=== PATIENT | male | born 1985 | race Caucasian/White ===

== ENCOUNTER 2018-01-19 10:51 | Emergency (ER) | payer SELFPAY ==
[~2018-01-19] VITALS: Ht 170.2 cm; Wt 63.0 kg
[2018-01-19 10:54] VITALS: BP 117/75
--- NOTE | 2018-01-19 10:58 | NUR ---
Patient ambulated to bed 4. RN evaluating patient at bedside.
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
--- NOTE | 2018-01-19 12:13 | NUR ---
Dr. Greer evaluating patient at bedside.
[2018-01-19] MEDS ORDERED: BACITRACIN OINT 500 UNITS/GM PKT TP ONE (12:25)
--- NOTE | 2018-01-19 12:40 | NUR ---
Dr. Greer re-evaluating patient at bedside.
--- NOTE | 2018-01-19 12:50 | NUR ---
Patient discharged with v/s stable. Written and verbal after care instructions given and explained. Patient alert, oriented and verbalized understanding of instructions. Ambulatory with steady gait. All questions addressed prior to discharge. ID band removed. Patient advised to follow up with PMD. Rx of BACTROBAN given. Patient educated on indication of medication including possible reaction and side effects. Opportunity to ask questions provided and answered.
[2018-01-19 12:52] VITALS: BP 115/70
[2018-01-20] MEDS ORDERED: MUPIROCIN 2% OINT 22 GM TUBE TP SCH (09:00)
== END 2018-01-19 12:50 | disposition home or self-care (01) ==
LOC: MED 10:51
DX: S80.212A Abrasion, left knee, initial encounter (principal); V89.9XXA Person injured in unspecified vehicle accident, initial encounter; Y93.89 Activity, other specified; Y92.89 Other specified places as the place of occurrence of the external cause; Y99.8 Other external cause status
CPT/HCPCS: 99283